=== PATIENT | male | born 1965 | race American Indian/Alaskan Native ===

== ENCOUNTER 2020-08-30 05:55 | Emergency (ER) | payer BC ==
--- NOTE | 2020-08-30 06:47 | Emergency Department Report ---
ED Syncope HPI - General Chief Complaint: Weakness Stated Complaint: SYNCOPAL EPISODE Time Seen by Provider: 08/30/20 06:17 Source: patient, EMS - History of Present Illness Initial Comments: 55-year-old male, history of diabetes, presents to ED following syncopal episode at home. Patient states he woke up when his woke up at 4:00 this morning to go to work the last thing he remembers is his leaving and then he went out on the patio. EMS was called because patient was found unresponsive by family. Upon EMS arrival, patient was lethargic with a strong pulse. Accu-Chek 444. Patient is currently awake and alert. He reports a history of diabetes, states he moved to [place] 1 year ago and has not established a PCP. Patient states he has not taken any of his diabetes medication in the last 7 months. Patient states he was on insulin and Metformin previously. Patient denies any preceding symptoms to his syncopal episode. He currently denies any headache, chest pain, shortness of breath, abdominal pain. Patient denies any recent illness, fever, cough, vomiting, diarrhea. Patient has not received his COVID- 19 vaccine. Timing/Prior Episodes: single episode today Precipitating Factors: Positive: none Loss of Consciousness: unsure Current Symptoms: weakness. denies: chest pain, dizziness, headache, nausea - Related Data Allergies/Adverse Reactions: Allergies No Known Allergies Allergy (Unverified 08/30/20 06:22) Home Medications: Ambulatory Orders metFORMIN [Glucophage] 500 mg PO BID #60 tablet 08/30/20 ED Review of Systems ROS: Stated complaint: SYNCOPAL EPISODE Other details as noted in HPI Comment: All other systems reviewed and negative Constitutional: denies: fever Respiratory: denies: cough, shortness of breath Cardiovascular: denies: chest pain Gastrointestinal: denies: abdominal pain, vomiting, diarrhea Neurological: denies: headache ED Past Medical Hx - Past Medical History Previous Medical History?: Yes Hx Dementia: Yes - Surgical History Past Surgical History?: No - Social History Smoking Status: Never Smoker Substance Use Type: None - Medications Home Medications: Home Medications Medication Instructions Recorded Confirmed Last Taken Type metFORMIN [Glucophage] 500 mg PO BID #60 tablet 08/30/20 Unknown Rx ED Physical Exam - General Limitations: Physical Limitation General appearance: alert, in no apparent distress - Head Head exam: Present: atraumatic, normocephalic - Eye Eye exam: Present: normal appearance, EOMI - ENT ENT exam: Present: mucous membranes moist - Neck Neck exam: Present: normal inspection - Respiratory Respiratory exam: Present: normal lung sounds bilaterally. Absent: respiratory distress - Cardiovascular Cardiovascular Exam: Present: regular rate, normal rhythm - GI/Abdominal GI/Abdominal exam: Present: soft. Absent: distended, tenderness - Extremities Exam Extremities exam: Present: normal inspection - Neurological Exam Neurological exam: Present: alert, oriented X3, CN II-XII intact. Absent: motor sensory deficit - Psychiatric Psychiatric exam: Present: normal affect, normal mood - Skin Skin exam: Present: warm, dry, intact, normal color ED Course Vital Signs 08/30/20 08/30/20 08/30/20 06:15 06:24 07:05 Temperature 97.4 F L Pulse Rate 98 H 77 91 H Respiratory 21 17 15 Rate Blood Pressure Blood Pressure 120/74 [Left] O2 Sat by Pulse 99 96 Oximetry 08/30/20 08/30/20 08/30/20 07:58 08:01 09:01 Temperature Pulse Rate 93 H 90 82 Respiratory 16 20 16 Rate Blood Pressure 175/102 167/97 Blood Pressure 166/95 [Left] O2 Sat by Pulse 100 98 96 Oximetry 08/30/20 10:01 Temperature Pulse Rate 86 Respiratory 13 Rate Blood Pressure 169/91 Blood Pressure [Left] O2 Sat by Pulse 97 Oximetry ED Medical Decision Making - Lab Data Result diagrams: 08/30/20 07:24 08/30/20 07:24 - EKG Data -: EKG Interpreted by Or EKG shows normal: sinus rhythm, axis, intervals, QRS complexes, ST-T waves Rate: normal - EKG Data Interpretation: no acute changes - Radiology Data Radiology results: report reviewed, image reviewed - Medical Decision Making 55-year-old male presents to the ED following syncopal episode at home. No neuro deficits on exam. CT head is normal. Patient is not orthostatic. EKG is unremarkable. Labs significant for WBCs of 14 and glucose of 444. No signs of infection on exam. Chest x-ray is normal. UA shows no evidence of UTI. Patient with hyperglycemia, however no evidence of DKA. Patient given 1 L bolus of IV fluids along with 8 units of insulin. Glucose improved to 157. Patient is feeling much better at this time. He will be discharged home at this time with prescription for Metformin. Outpatient follow-up advised, return pr ecautions given. - Differential Diagnosis Hyperglycemia, DKA, dehydration, CVA Critical care attestation.: If time is entered above; I have spent that time in minutes in the direct care of this critically ill patient, excluding procedure time. ED Disposition Clinical Impression: Syncope, Hyperglycemia Disposition: DC-01 TO HOME OR SELFCARE Is pt being admited?: No Condition: Stable Instructions: Hyperglycemia, [id number], Syncope, [id number], Syncope (ED) Prescriptions: metFORMIN [Glucophage] 500 mg PO BID #60 tablet Referrals: [facility] [Provider Group] - 3-5 Days [facility] [Outside] - 3-5 Days BERNARD HILL MD [Staff Physician] - 3-5 Days Forms: Work/School Release Form(ED) Time of Disposition: 10:55
[2020-08-30 07:07] LABS: Bilirubin,Urine NEG (Negative); Blood,Urine SM (Negative); Color,Urine Straw (Yellow); Mucus,Urine FEW /HPF; Urobilinogen,Urine < 2.0 mg/dL (<2.0); WBC,Urine < 1.0 /HPF (0.0-6.0)
--- NOTE | 2020-08-30 07:09 | XRay Report ---
CHEST 1 VIEW INDICATION / CLINICAL INFORMATION: syncope. COMPARISON: None available. FINDINGS: SUPPORT DEVICES: None. HEART / MEDIASTINUM: No significant abnormality. LUNGS / PLEURA: No significant pulmonary or pleural abnormality. No pneumothorax. ADDITIONAL FINDINGS: No significant additional findings. IMPRESSION: 1. No acute findings. Signer Name: Mikala Brower MD Signed: 08/30/2020 7:04 AM Workstation Name: [id number]
--- NOTE | 2020-08-30 07:12 | Cat Scan Report ---
CT head/brain wo con INDICATION / CLINICAL INFORMATION: 55 years Male; Altered Mental Status. TECHNIQUE: Routine CT head without contrast. All CT scans at this location are performed using CT dos e reduction for ALARA by means of automated exposure control. COMPARISON: None. FINDINGS: BRAIN / INTRACRANIAL CONTENTS: No acute hemorrhage, mass effect, midline shift, hydrocephalus, or acu te, large territorial infarct. No signs of significant atrophy or chronic infarct. No significant whi te matter abnormality seen. CRANIOCERVICAL JUNCTION: No significant abnormality. ORBITS: No significant abnormality of visualized orbits. SINUSES / MASTOIDS: Visualized paranasal sinuses and mastoid air cells are essentially clear. ADDITIONAL FINDINGS: Prominent soft tissue is seen in the roof the nasopharynx, presumably related to reactive adenoidal tissue. Please clinically correlate. There may be a scar in the subcutaneous soft tissues superficial to the right trapezius muscle in the right suboccipital region. Please clinically correlate. IMPRESSION: 1. No focal mass, hemorrhage, hydrocephalus, or acute, large territorial infarct. Signer Name: Gabe Rose MD, III Signed: 08/30/2020 7:08 AM Workstation Name: [employer]
[2020-08-30 07:15] LABS: Amphetamine Screen,Urine Negative; Benzodiazepines Screen,Urine Negative; Cannabinoid Screen,Urine Negative; Cocaine Screen,Urine Negative; Methadone Screen,Urine Negative; Opiate Screen,Urine Negative
[2020-08-30 07:40] LABS: Basophils % (Auto) 0.3 % (0.0-1.8); Eosinophils % (Auto) 0.2 % (0.0-4.3); Hematocrit 40.8 % (35.5-45.6); Hemoglobin 13.2 gm/dl (11.8-15.2); Mean Corpuscular HGB Conc 32 % (32-34); Mean Corpuscular Volume 87 fl (84-94); Monocytes # (Auto) 0.7 K/mm3 (0.0-0.8); Monocytes % (Auto) 4.6 % (0.0-7.3); Platelet Count 288 K/mm3 (140-440); Red Blood Count 4.69 M/mm3 (3.65-5.03)
[2020-08-30 07:49] LABS: INR 0.91 (0.87-1.13)
[2020-08-30 08:03] LABS: Alanine Aminotransferase 13 units/L (7-56); Albumin 4.4 g/dL (3.9-5); BUN/Creatinine Ratio 18; Blood Urea Nitrogen 14 mg/dL (9-20); Calcium 9.8 mg/dL (8.4-10.2); Hemolysis Index 4
[2020-08-30 08:10] LABS: Bilirubin,Direct < 0.2 mg/dL (0-0.2)
[2020-08-30] MEDS ORDERED: SODIUM CHLORIDE 0.9% 1000 ML 1,000 ML IV ONE (09:09)
[2020-08-30] MEDS ORDERED: INSULIN REGULAR, HUMAN 100 UNITS/1 ML IV ONE (09:10)
[2020-08-30 10:39] VITALS: BP 169/91
[2020-08-30] MEDS ORDERED: IBUPROFEN 800 MG TAB PO ONE (10:40)
--- NOTE | 2020-09-07 10:50 | Electrocardiograph Report ---
[facility] Test Date: 2020-08-30 Test Time: 06:40:46 Pat Name: TISH ALFARO Department: Room: Gender: M Parole Agent: NURSE : 1965 Requested By: DIONE SKINNER Order Number: [id number] Reading MD: Judy Pena Measurements Intervals Hensel Rate: 93 P: 83 NM: 182 QRS: 82 QRSD: 110 T: 81 QT: 390 QTc: 484 Interpretive Statements Sinus rhythm No previous ECG available for comparison Electronically Signed On 09-07-2020 10:50:30 EDT by Judy Pena
== END 2020-08-30 12:04 | disposition home or self-care (01) ==
LOC: ED 05:55
DX: R55 Syncope and collapse (principal); R73.9 Hyperglycemia, unspecified; F03.90 Unspecified dementia, unspecified severity, without behavioral disturbance, psychotic disturbance, mood disturbance, and anxiety; Z79.899 Other long term (current) drug therapy
CPT/HCPCS: 36415; 70450; 71045; 80048; 80076; 80307; 81001; 82962; 84484; 85025; 85610; 85730; 93005; 96361; 96374; 99285; J7030; 80320; G0480; J1815